=== PATIENT | female | born 1970 | race Caucasian/White ===

== ENCOUNTER 2017-03-15 21:46 | Emergency (ER) | payer BC ==
[~2017-03-15] VITALS: Ht 162.6 cm; Wt 73.1 kg
[~2017-03-15 21:46] MED LIST: PRENTAB26 PO
[2017-03-15 21:58] VITALS: Ht 162.6 cm; Wt 73.1 kg
[2017-03-15] MEDS ORDERED: LACT1CAP6 PO (22:17)
[2017-03-15] MEDS: ONDANSETRON INJ 2 MG/ML 2 ML VIAL IV STA ×2 (22:25→23:29)
[2017-03-15] MEDS ORDERED: KETOROLAC TROMETHAMINE 30 MG/ML VIAL IV STA (22:25)
[2017-03-15] MEDS ORDERED: SODIUM CHLORIDE 0.9% 1000ML 1,000 ML IV STA (22:25)
[2017-03-15] MEDS ORDERED: OPTIRAY 320 IV PRN (22:45)
[2017-03-15 23:27] LABS: MEAN CORPUSCULAR HGB CONC 32.9 g/dl (32-36); MEAN PLATELET VOLUME 10.2 fL (7.4-10.4); PLATELET COUNT 196 K/uL (130-400)
[2017-03-15 23:30] LABS: URINE APPEARANCE CLEAR (CLEAR); URINE BILIRUBIN NEG (NEG); URINE COLOR YELLOW; URINE NITRITE NEG (NEG); URINE SPECIFIC GRAVITY 1.005 (1.000-1.030); UROBILINOGEN NEG (NEG); ZZUR CULT IF INDIC CLEAN CATCH NO
[2017-03-15 23:35] VITALS: TEMP 37.2
[2017-03-15 23:42] LABS: MANUAL MICROSCOPIC REQUIRED? NO; REVIEW REQ? NO
[2017-03-15 23:46] LABS: ALT/SGPT 22 U/L (12-78); AST/SGOT 12 U/L (15-37); BLOOD UREA NITROGEN 12 mg/dl (7-18); BUN/CREATININE RATIO 17.8 (10-20); CALCIUM 9.4 mg/dl (8.5-10.1); CARBON DIOXIDE 29 mmol/L (21-32); CHLORIDE 104 mmol/L (98-107); CREATININE 0.67 mg/dl (0.60-1.20); GLUCOSE 104 mg/dl (70-99); POTASSIUM 3.8 mmol/L (3.5-5.1); SODIUM 140 mmol/L (136-145)
[2017-03-15 23:49] LABS: ALKALINE PHOSPHATASE 57 U/L (45-117)
[2017-03-15 23:56] LABS: BASO % 0.2 %; BASO ABS # 0.03 K/uL (0-0.2); COMPLETE YES; EOS % 0.6 %; IG% 0.2 %; LYMPH % 10.2 %; LYMPH ABS # 1.29 K/uL (1.2-3.4); MEAN CELL VOLUME 86.1 fL (80-100); MEAN CORPUSCULAR HEMOGLOBIN 28.4 pg (25-34); MONO % 6.5 %; NEUT % 82.3 %; RED BLOOD COUNT 4.76 M/uL (4.2-5.4); WHITE BLOOD COUNT 12.65 K/uL (4.8-10.8)
[2017-03-16] MEDS ORDERED: METR-163 PO (01:40)
[2017-03-16] MEDS ORDERED: CIPR-255 PO (01:40)
--- NOTE | 2017-03-16 01:40 | EMERGENCY ROOM VISIT NOTE ---
History Report prepared by [place]: Carolina Buckley Under the Supervision of: Dr. Brad Quinteros D.O. First contact with patient: 22:16 Chief Complaint: ABDOMINAL PAIN Stated Complaint: ABD CRAMPS,FEVER,CHILLS,NO VOMITING History of Present Illness The patient is a 47 year old female who presents to the Emergency Room with complaints of persistent abdominal cramping starting in the middle of the night last night. She was sleeping last night when she noticed that her abdomen hurt. Her daughter also complained of abdominal pain and was feverish so she thought that they might have the stomach flu. Her daughter seemed to improve, but the patient has been having abdominal cramping throughout the day. She also feels bloated and feels like she needs to have a bowel movement. She did have a large bowel movement this morning. She has also recently noticed bladder pressure. She had a fever of 101.7. Last night she was feeling fatigued. She reports some back pain. She denies any dysuria, nausea, or vomiting. She has been taking probiotics for the past 4 days. She has a history of acid reflux. She has a family history of diverticulitis. Source of History: patient Onset: last night Position: abdomen Quality: cramping Timing: other (persistent) Associated Symptoms: + fevers, + back pain, + fatigue, No nausea, No vomiting Note: Pt reports bladder pressure, bloating. Pt denies dysuria. Review of Systems See HPI for pertinent positives & negatives. A total of 10 systems reviewed and were otherwise negative. Past Medical & Surgical Medical Problems: (1) Acid reflux Family History Cancer Diabetes mellitus Heart disease Hypertension Social History Smoking Status: Never Smoker Marital Status: Housing Status: lives with family Current/Historical Medications Scheduled Ciprofloxacin Hcl (Cipro), 500 MG PO BID Lactobacillus (Probiotic), 1 CAP PO DIRECTED Metronidazole (Flagyl), 500 MG PO BID Allergies Coded Allergies: Apple (Verified Allergy, Mild, CAN EAT COOKED, 03/15/17) Page (Verified Allergy, Mild, CAN EAT COOKED, 03/15/17) [place] (Verified Allergy, Mild, CAN EAT COOKED, 03/15/17) Plums (Verified Allergy, Mild, CAN EAT COOKED, 03/15/17) Soy Milk (Verified Allergy, Mild, GI UPSET, 03/15/17) Physical Exam Vital Signs Date Time Temp Pulse Resp B/P (MAP) Pulse Ox O2 Delivery O2 Flow Rate FiO2 03/15/17 23:35 37.2 84 18 104/63 96 Room Air 03/15/17 21:58 37.4 106 18 131/81 97 Room Air Physical Exam CONSTITUTIONAL/VITAL SIGNS: Reviewed / noted above. GENERAL: Non-toxic in appearance. INTEGUMENTARY: Warm, dry, and Olla. HEAD: Normocephalic. EYES: without scleral icterus or trauma. ENT/OROPHARYNX: clear and moist. LYMPHADENOPATHY/NECK: Is supple without lymphadenopathy or meningismus. RESPIRATORY: Lungs clear and equal. CARDIOVASCULAR: Regular rate and rhythm. GI/ABDOMEN: Soft and diffusely tender in the lower abdomen bilaterally. No organomegaly or pulsatile mass. No rebound or guarding. Normal bowel sounds. EXTREMITIES: Warm and well perfused. BACK: No CVA tenderness. NEUROLOGICAL: Intact without focal deficits. PSYCHIATRIC: normal affect. MUSCULOSKELETAL: Normally developed with good muscle tone. Medical Decision & Procedures ER Provider Diagnostic Interpretation: Radiology results as stated below per my review and [facility] radiologist interpretation: CT abdomen & pelvis: There are inflammatory changes involving the sigmoid colon with regional diverticula, most likely representing acute diverticulitis. There is mural thickening with pericolic fat stranding, but no evidence of free air or diverticular abscess. There visualized appendix is normal. There is no evidence of small or large bowel obstruction. There is a 4.5 cm low-density mass along the right anterior margin, possibly a fibroid or right adnexal mass. There is a collapsing left ovarian corpus luteum cyst. There is mild free pelvic fluid. Urinary bladder is unremarkable. Liver, gallbladder, spleen, pancreas, adrenal glands, and kidneys are unremarkable. No acute osseous findings. Laboratory Results 03/15/17 23:13 Red Blood Count 4.76, Mean Corpuscular Volume 86.1, Mean Corpuscular Hemoglobin 28.4, Mean Corpuscular Hemoglobin Concent 32.9, Mean Platelet Volume 10.2, Neutrophils (%) (Auto) 82.3, Lymphocytes (%) (Auto) 10.2, Monocytes (%) (Auto) 6.5, Eosinophils (%) (Auto) 0.6, Basophils (%) (Auto) 0.2, Neutrophils # (Auto) 10.42, Lymphocytes # (Auto) 1.29, Monocytes # (Auto) 0.82, Eosinophils # (Auto) 0.07, Basophils # (Auto) 0.03 03/15/17 23:13 Test 03/15/17 23:13 White Blood Count 12.65 K/uL (4.8-10.8) Red Blood Count 4.76 M/uL (4.2-5.4) Hemoglobin 13.5 g/dL (12.0-16.0) Hematocrit 41.0 % (37-47) Mean Corpuscular Volume 86.1 fL (80-100) Mean Corpuscular Hemoglobin 28.4 pg (25-34) Mean Corpuscular Hemoglobin Concent 32.9 g/dl (32-36) Platelet Count 196 K/uL (130-400) Mean Platelet Volume 10.2 fL (7.4-10.4) Neutrophils (%) (Auto) 82.3 % Lymphocytes (%) (Auto) 10.2 % Monocytes (%) (Auto) 6.5 % Eosinophils (%) (Auto) 0.6 % Basophils (%) (Auto) 0.2 % Neutrophils # (Auto) 10.42 K/uL (1.4-6.5) Lymphocytes # (Auto) 1.29 K/uL (1.2-3.4) Monocytes # (Auto) 0.82 K/uL (0.11-0.59) Eosinophils # (Auto) 0.07 K/uL (0-0.5) Basophils # (Auto) 0.03 K/uL (0-0.2) RDW Standard Deviation 42.7 fL (36.4-46.3) RDW Coefficient of Variation 13.5 % (11.5-14.5) Immature Granulocyte % (Auto) 0.2 % Immature Granulocyte # (Auto) 0.02 K/uL (0.00-0.02) Red Blood Cell Morphology Unremarkable Urine Color YELLOW Urine Appearance CLEAR (CLEAR) Urine pH 7.0 (4.5-7.5) Urine Specific [place] 1.005 (1.000-1.030) Urine Protein NEG (NEG) Urine Glucose (UA) NEG (NEG) Urine Ketones NEG (NEG) Urine Occult Blood NEG (NEG) Urine Nitrite NEG (NEG) Urine Bilirubin NEG (NEG) Urine Urobilinogen NEG (NEG) Urine Leukocyte Esterase NEG (NEG) Urine WBC (Auto) 0 /hpf (0-5) Urine RBC (Auto) 0-4 /hpf (0-4) Urine Hyaline Casts (Auto) 0 /lpf (0-5) Urine Epithelial Cells (Auto) 5-10 /lpf (0-5) Urine Bacteria (Auto) NEG (NEG) Urine Test NEG (NEG) Anion Gap 7.0 mmol/L (3-11) Est Creatinine Clear Calc Drug Dose 102.8 ml/min Estimated GFR () 122.2 Estimated GFR (Non- 105.4 BUN/Creatinine Ratio 17.8 (10-20) Calcium Level 9.4 mg/dl (8.5-10.1) Total Bilirubin 0.4 mg/dl (0.2-1) Direct Bilirubin < 0.1 mg/dl (0-0.2) Aspartate Amino Transf (AST/SGOT) 12 U/L (15-37) Alanine Aminotransferase (ALT/SGPT) 22 U/L (12-78) Alkaline Phosphatase 57 U/L (45-117) Total Protein 7.8 gm/dl (6.4-8.2) Albumin 3.9 gm/dl (3.4-5.0) Lipase 134 U/L (73-393) Laboratory results as stated above per my review. Medications Administered Medications (Trade) Dose Ordered Sig/Allyson Route Start Time Stop Time Status Last Admin Dose Admin Sodium Chloride 1,000 ml @ 999 mls/hr Q1H1M STAT IV 03/15/17 22:25 03/15/17 23:25 DC 03/15/17 23:28 999 MLS/HR Ketorolac Tromethamine (Toradol Inj) 30 mg NOW STAT IV 03/15/17 22:25 03/15/17 22:28 DC 03/15/17 23:29 30 MG ED Course 2219: Previous medical records were reviewed. The patient was evaluated in room A3. A complete history and physical examination was performed. 2225: Toradol Inj 30 mg IV, Zofran Inj 4 mg IV, NSS 1000 ml @ 999 mls/hr IV. 0141: Flagyl Tab 500 mg PO, Ciprofloxacin 500 mg PO. 0142: On reevaluation, the patient is resting comfortably. I discussed the results and findings with the patient. She verbalized agreement of the treatment plan. She was discharged home. Medical Decision Differential considered: pancreatitis, hepatitis, or acute cholecystitis, AAA, UTI, pyelonephritis, kidney stones, appendicitis, diverticulitis, shingles, bowel obstruction mesenteric ischemia, intussusception,hernia, ovarian torsion, ruptured ovarian cyst,ectopic , . This is a 47-year-old female presents to the ED with a chief complaint of abdominal pain. The patient states that she began having symptoms yesterday afternoon. She reports some abdominal cramps. Her pain increased today. She reported several bowel movements this morning. The patient denies any nausea or vomiting. She had a temperature of 101.7 tonight. White blood cell count was 12.15. Complete metabolic panel was unremarkable. Urine did not show infection. test was negative. CT scan of the abdomen and pelvis reveals acute sigmoid diverticulitis. Abdominal exam revealed tenderness in the lower abdomen both left and right. The patient was treated with Cipro and Flagyl. She is felt to be stable for discharge and outpatient follow-up. Impression Primary Impression: Diverticulitis Scribe Attestation The scribe's documentation has been prepared under my direction and personally reviewed by me in its entirety. I confirm that the note above accurately reflects all work, treatment, procedures, and medical decision making performed by me. Departure Information Dispostion Home / Self-Care Prescriptions Metronidazole (Flagyl) 500 Mg Tab 500 MG PO BID, #20 TAB Prov: Brad Quinteros D.O. 03/16/17 Ciprofloxacin Hcl (CIPRO) 500 Mg Tab 500 MG PO BID for 10 Days, #20 TAB Prov: Brad Quinteros D.O. 03/16/17 Referrals Brody Bonds M.D.([facility]) (PCP) Patient Instructions ED Diverticulitis, My [facility] Additional Instructions Cipro and Flagyl as prescribed. Liquid diet for the next to 3 days until symptoms improve. Follow-up instructions provided. Take Tylenol or Motrin for pain. Follow-up with your doctor for further care and evaluation in 1-2 days. Return to the emergency department for worsening or new symptoms or any concerns. You have been examined and treated today on an emergency basis only. This is not a substitute for, or an effort to provide, complete comprehensive medical care. It is impossible to recognize and treat all injuries or illnesses in a single emergency department visit. It is therefore important that you follow up closely with your doctor. Call as soon as possible for an appointment.
[2017-03-16] MEDS ORDERED: METRONIDAZOLE 250 MG TAB PO STA (01:41)
[2017-03-16] MEDS ORDERED: CIPROFLOXACIN 500 MG TAB PO STA (01:41)
[2017-03-16 02:35] VITALS: BP 97/64; PULSE 75; O2SAT 96
--- NOTE | 2017-03-16 07:06 | DIAGNOSTIC IMAGING REPORT ---
ABD/PELVIS IV AND ORAL CONT HISTORY: 47 years-old Female acute abdominal pain with cramping and fever. COMPARISON: None available TECHNIQUE: Multiple axial CT images of the abdomen and pelvis were obtained following the intravenous administration of 93 mL Optiray 320. Oral contrast was also used. FINDINGS: Lung bases are clear. No pneumoperitoneum is identified. Imaged inferior cardiac chambers are unremarkable. The liver, spleen, gallbladder, pancreas and adrenal glands appear normal. Bilateral kidneys and ureters are within normal limits. Urinary bladder is unremarkable. There is a 3.7 x 4.6 x 4.3 cm ovoid circumscribed lesion in the region of the right adnexum adjacent to the fundal uterus which is difficult to evaluate exact origin. Moderate amount of free pelvic fluid is noted. Uterus and left adnexum are otherwise within normal limits. The abdominal aorta is normal in both course and caliber. There is no bulky retroperitoneal adenopathy. There is no bowel obstruction. There is circumferential wall thickening of the mid sigmoid colon with moderate inflammatory changes and stranding surrounding sigmoid colonic diverticula within this distribution. There is thickening of the adjacent peritoneum. No associated abscess collection or free air to suggest perforation. Air and contrast material are seen within a noninflamed appearing appendix. The appendix however is dilated, likely normal for this patient. Soft tissues are unremarkable. Degenerative changes are seen involving the bilateral sacroiliac joints. Annular disc bulging is seen at L5-S1. IMPRESSION: 1. Findings compatible with acute uncomplicated sigmoid diverticulitis with associated moderate inflammatory changes. 2. 4.6 cm ovoid lesion of the right lower pelvis suggests right ovarian cyst however a subserosal leiomyoma may have a similar appearance. This can be correlated with pelvic ultrasound if clinically indicated. The above report was generated using voice recognition software. It may contain grammatical, syntax or spelling errors. Electronically signed by: Bneedicto Looney M.D. 03/16/2017 7:04 AM Dictated Date/Time: 03/16/2017 6:57 AM
== END 2017-03-16 02:39 | disposition home or self-care (01) ==
LOC: C.EDB 21:47 → C.EDA 03-16 02:39
DX: K57.92 Diverticulitis of intestine, part unspecified, without perforation or abscess without bleeding (principal); K21.9 Gastro-esophageal reflux disease without esophagitis; Z91.011 Allergy to milk products; Z91.018 Allergy to other foods; Z80.9 Family history of malignant neoplasm, unspecified; Z83.3 Family history of diabetes mellitus; Z82.49 Family history of ischemic heart disease and other diseases of the circulatory system

== ENCOUNTER → 2018-04-07 | Outpatient (CLI) | payer OTHER ==
[~2018-04-07] MED LIST changes: +CIPR-255 PO; +LACT1CAP6 PO; -PRENTAB26 PO
--- NOTE | 2018-04-08 15:40 | MAMMOGRAPHY REPORT ---
BILATERAL DIGITAL SCREENING MAMMOGRAM TOMOSYNTHESIS WITH CAD: 04/07/2018 CLINICAL HISTORY: Routine screening. TECHNIQUE: The study was acquired using full field digital technology and interpreted from soft copy. Breast tomosynthesis in addition to standard 2D mammography was performed. Current study was also ev aluated with a Computer Aided Detection (CAD) system. COMPARISON: Comparison is made to exam dated: 05/08/2016 mammogram - [facility]. BREAST COMPOSITION: There are scattered areas of fibroglandular density in both breasts. FINDINGS: The parenchymal pattern is unchanged. No developing mass, architectural distortion or cluster of susp icious microcalcifications is seen in either breast. IMPRESSION: ACR BI-RADS CATEGORY 2: BENIGN There is no mammographic evidence of malignancy. A 1 year screening mammogram is recommended.( 019) The patient will receive written notification of the results. Some breast cancers are not detected with mammography. A negative mammographic report should not morelia y biopsy if a clinically suggestive mass is present. Maricarmen Cardenas M.D. ay/:04/07/2018 15:56:52 Belly Dancer: RT Zakia(German)(M), [facility] letter sent: Normal 1/2 BI-RADS Code: ACR BI-RADS Category 2: Benign
== END | disposition home or self-care (01) ==
LOC: C.MAMM 10:01
PROVIDERS: ATTEND Obstetrics & Gynecology
DX: Z12.31 Encounter for screening mammogram for malignant neoplasm of breast (principal)